=== PATIENT | female | born 1985 | race Caucasian/White ===

== ENCOUNTER 2018-09-28 15:12 | Emergency (ER) | payer OTHER, BC | END 2018-09-28 16:56 | disposition home or self-care (01) | LOC: M ED 15:12 | DX: S39.012A Strain of muscle, fascia and tendon of lower back, initial encounter (principal); X50.9XXA Other and unspecified overexertion or strenuous movements or postures, initial encounter; Y92.59 Other trade areas as the place of occurrence of the external cause; Y99.0 Civilian activity done for income or pay; M62.830 Muscle spasm of back; F17.210 Nicotine dependence, cigarettes, uncomplicated | CPT/HCPCS: 99283 ==

== ENCOUNTER 2020-04-21 12:02 | Emergency (ER) | payer BC, OTHER ==
[~2020-04-21] VITALS: Ht 154.9 cm; Wt 111.0 kg
[~2020-04-21 12:02] MED LIST: CYCL-707 PO; IBUP-1022 PO
[2020-04-21] MEDS ORDERED: NS 1,000 ML IV ONE ×3 (12:15→13:30)
[2020-04-21] MEDS ORDERED: BENA25CA4 PO (12:17)
[2020-04-21] MEDS ORDERED: CENTCHW4 PO (12:17)
[2020-04-21] MEDS ORDERED: ALLE1TAB23 PO (12:17)
[2020-04-21] MEDS ORDERED: ONDANSETRON 4MG/2ML VIAL IV ONE ×2 (12:30→12:45)
[2020-04-21 12:38] LABS: BASO # 0.1 10^3/uL (0.0-0.2); BASO % 0.9 % (0.0-1.0); EOS # 0.2 10^3/uL (0.0-0.5); EOS % 3.1 % (0.0-3.0); HEMATOCRIT 42.1 % (36.0-47.0); HEMOGLOBIN 14.4 g/dl (12.0-15.5); LYMPH # 1.9 10^3/uL (1.5-5.0); MEAN CORPUSCULAR HEMOGLOBIN 30.8 pg (27.0-33.0); MEAN CORPUSCULAR HGB CONC 34.2 g/dl (32.0-36.5); MONO # 0.5 10^3/uL (0.0-0.8); MONO % 8.2 % (0.0-5.0); NEUTROPHILS # 2.9 10^3/uL (1.5-8.5); NEUTROPHILS % 52.6 % (36.0-66.0); PLATELET COUNT, AUTOMATED 207 10^3/uL (150-450); RED BLOOD COUNT 4.68 10^6/uL (4.00-5.40); WHITE BLOOD COUNT 5.5 10^3/uL (4.0-10.0)
[2020-04-21] MEDS ORDERED: PANTOPRAZOLE 40MG VIAL (C9113 PER 1) IV ONE (12:45)
[2020-04-21] MEDS ORDERED: KETOROLAC 30 MG/ML 1ML VIAL IV ONE (12:45)
[2020-04-21 13:02] LABS: HCG, SERUM QUALITATIVE NEGATIVE (NEGATIVE)
[2020-04-21 13:07] LABS: ALBUMIN 4.2 GM/DL (3.2-5.2); ALT/SGPT 31 U/L (12-78); BILIRUBIN,DIRECT < 0.1 MG/DL (0.0-0.2); BILIRUBIN,TOTAL 0.3 MG/DL (0.2-1.0); BLOOD UREA NITROGEN 15 MG/DL (7-18); CALCIUM LEVEL 9.5 MG/DL (8.5-10.1); CARBON DIOXIDE LEVEL 23 MEQ/L (21-32); CHLORIDE LEVEL 104 MEQ/L (98-107); CK-MB VALUE MASS 1.2 NG/ML (<3.6); CPK CREATINE PHOSPHOKINASE 160 U/L (26-192); ETHYL ALCOHOL (ETHANOL) 0.003 % (0.000-0.010); GLOMERULAR FILTRATION RATE > 60.0 (>60); GLUCOSE, FASTING 130 MG/DL (70-100); LIPASE 90 U/L (73-393); MB/CK RELATIVE INDEX 0.75 (< OR =4); POTASSIUM SERUM 3.5 MEQ/L (3.5-5.1); SODIUM LEVEL 139 MEQ/L (136-145); TOTAL PROTEIN 7.6 GM/DL (6.4-8.2); TROPONIN I < 0.02 NG/ML (< 0.10)
[2020-04-21 13:12] LABS: AMPHETAMINES LEVEL URINE NEGATIVE (NEGATIVE); BARBITURATES URINE NEGATIVE (NEGATIVE); BENZODIAZEPINES URINE NEGATIVE (NEGATIVE); CANNABINOIDS URINE NEGATIVE (NEGATIVE); COCAINE METABOLITE URINE NEGATIVE (NEGATIVE); METHADONE URINE NEGATIVE (NEGATIVE); OPIATES URINE NEGATIVE (NEGATIVE); PHENCYCLIDINE URINE NEGATIVE (NEGATIVE)
[2020-04-21] MEDS ORDERED: MECLIZINE 25 MG TABLET PO ONE (13:30)
[2020-04-21 14:27] VITALS: BP 127/78
--- NOTE | 2020-04-21 14:35 | ECGEPIP ---
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
--- NOTE | 2020-04-21 15:32 | REP ---
Clinical: Acute headache and vomiting . Comparison: None . Technique: Axial noncontrast images from the skull base to the vertex with coronal re-formations. Findings: The ventricles, sulci, and cisterns are normal in position and appearance. Santana-white differentiation is maintained. No acute intracranial hemorrhage, mass/mass effect, pathology or trauma/injury. No evidence for acute infarction. No extra-axial fluid collection. Calvarium is intact. Paranasal sinuses and mastoid air cells are clear. Impression: Normal noncontrast head CT. No evidence for acute intracranial pathology or trauma/injury. Electronically Signed by Silas Bailey MD 04/21/2020 03:24 P
--- NOTE | 2020-04-21 15:37 | REP ---
Clinical: Chest pain and dizziness . Comparison: 02/28/2013 . Findings: The mediastinum and cardiac silhouette are stable and within normal limits for portable technique. The lung coe are clear without acute consolidation, effusion, or pneumothorax. Skeletal structures are intact. Impression: No acute cardiopulmonary process appreciated. Electronically Signed by Silas Bailey MD 04/21/2020 03:29 P
== END 2020-04-21 15:18 | disposition home or self-care (01) ==
LOC: M ED 12:02
DX: R55 Syncope and collapse (principal); E86.0 Dehydration; G43.909 Migraine, unspecified, not intractable, without status migrainosus; Z79.899 Other long term (current) drug therapy; F17.218 Nicotine dependence, cigarettes, with other nicotine-induced disorders
CPT/HCPCS: 70450; 71045; 80048; 80076; 80307; 81001; 82550; 82553; 83690; 84443; 84484; 84703; 85025; 93005; 93041; 94760; 96361; 96374; 99285; G0480; J2405

== ENCOUNTER 2024-04-23 21:53 | Inpatient (IN) | payer BC, SELFPAY ==
[~2024-04-23] VITALS: Ht 154.9 cm; Wt 59.9 kg
[~2024-04-23 21:53] MED LIST changes: +BENA25CA4 PO; +CENTCHW4 PO; +FEXO-157 PO
[2024-04-23] MEDS: ONDANSETRON 4MG 2ML VIAL IV ONE (22:00)
[2024-04-23] MEDS: MORPHINE 4 MG/ML 1ML VIAL IV PRN (22:08)
[2024-04-23] MEDS: NS 1,000 ML IV ONE (22:09)
[2024-04-23] MEDS ORDERED: ceFAZolin SOD 2 GM in D5W MINI-BAG PLUS 50 ML IV ONE (22:20)
[2024-04-23 22:29] LABS: VENOUS BASE EXCESS -2.4 (-2.0-2.0); VENOUS HCO3 19.6 MMOL/L (23.0-27.0); VENOUS O2 SATURATION 98.4 % (60.0-80.0); VENOUS PARTIAL PRESSURE O2 110.4 mmHg (30.0-50.0); VENOUS PH 7.479 UNITS (7.330-7.430); VENOUS STANDARD HCO3 22.5 MMOL/L; VENOUS TOTAL CO2 20.4 MMOL/L (24.0-28.0)
[2024-04-23 22:32] LABS: BASO # 0.1 10^3/uL (0.0-0.2); BASO % 0.5 % (0.0-1.0); EOS # 0.1 10^3/uL (0.0-0.5); EOS % 0.8 % (0.0-3.0); HEMATOCRIT 40.1 % (36.0-47.0); HEMOGLOBIN 14.1 g/dl (12.0-15.5); LYMPH # 2.3 10^3/uL (1.5-5.0); LYMPH % 22.9 % (24.0-44.0); MEAN CORPUSCULAR HEMOGLOBIN 31.9 pg (27.0-33.0); MEAN CORPUSCULAR HGB CONC 35.2 g/dl (32.0-36.5); MEAN CORPUSCULAR VOLUME 90.7 fl (80.0-96.0); MONO # 0.6 10^3/uL (0.0-0.8); MONO % 5.7 % (2.0-8.0); NEUTROPHILS % 69.7 % (36.0-66.0); PLATELET COUNT, AUTOMATED 213 10^3/uL (150-450); RED BLOOD COUNT 4.42 10^6/uL (4.00-5.40)
[2024-04-23] MEDS: fentaNYL 100 MCG/2 ML INJECTION IV ONE ×2 (22:32→22:57)
[2024-04-23] MEDS: ceFAZolin SOD 2 GM in IV 1 EA IV ONE (22:40)
[2024-04-23 22:46] LABS: INR 0.87; PARTIAL THROMBOPLASTIN TIME 26.1 SECONDS (24.8-34.2); PROTHROMBIN TIME 11.6 SECONDS (12.5-14.5)
[2024-04-23 22:59] LABS: LIPASE 30 U/L (12-53)
[2024-04-23 23:00] LABS: ETHYL ALCOHOL (ETHANOL) < 0.003 % (0.000-0.010)
[2024-04-23 23:01] LABS: AMYLASE 59 U/L (30-118)
[2024-04-23 23:02] LABS: ALBUMIN 3.6 G/DL (3.2-5.2); ALKALINE PHOSPHATASE 92 U/L (46-116); ALT/SGPT 22 U/L (7.0-40); AST/SGOT 19 U/L (<34); BILIRUBIN,DIRECT < 0.1 MG/DL (<0.4); BILIRUBIN,TOTAL < 0.2 MG/DL (0.3-1.2); BLOOD UREA NITROGEN 16 MG/DL (9-23); CALCIUM LEVEL 8.9 MG/DL (8.5-10.1); CARBON DIOXIDE LEVEL 23 MMOL/L (20-31); CHLORIDE LEVEL 106 MMOL/L (98-107); CREATININE FOR GFR 0.61 MG/DL (0.55-1.30); GLOMERULAR FILTRATION RATE > 60.0 (>60); GLUCOSE, FASTING 134 MG/DL (60-100); POTASSIUM SERUM 3.9 MMOL/L (3.5-5.1); SODIUM LEVEL 138 MMOL/L (136-145); TOTAL PROTEIN 6.4 G/DL (5.7-8.2)
[2024-04-23] MEDS ORDERED: fentaNYL 100 MCG/2 ML INJECTION As Ordered ONE (23:07)
[2024-04-23] MEDS ORDERED: LIDOCAINE 2% 100MG/5ML SDV (FOR ANES.) As Ordered ONE (23:08)
[2024-04-23] MEDS ORDERED: propofoL 200 MG/20 ML VIAL As Ordered ONE (23:08)
[2024-04-23] MEDS ORDERED: ROCURONIUM BROMIDE 50MG/5ML VIAL As Ordered ONE (23:08)
[2024-04-23] MEDS ORDERED: SUGAMMADEX SODIUM 500 MG/5 ML VIAL (BRIDION) As Ordered ONE (23:08)
[2024-04-23] MEDS ORDERED: MIDAZOLAM INJ 2MG/2ML VIAL As Ordered ONE (23:08)
[2024-04-23] MEDS ORDERED: ACETAMINOPHEN 1000MG 100ML IV BAG As Ordered ONE (23:08)
[2024-04-23] MEDS ORDERED: ONDANSETRON 4MG 2ML VIAL As Ordered ONE (23:08)
[2024-04-23] MEDS ORDERED: ISOVUE-370 76% 100ML VIAL As Ordered ONE (23:37)
[2024-04-24] VITALS (8 sets, daily range): BP systolic 115–133; BP diastolic 66–87; TEMP 98.2–99.3; O2SAT 96–99
[2024-04-24] MEDS: fentaNYL 100 MCG/2 ML INJECTION IV ONE (00:02)
[2024-04-24] MEDS ORDERED: HOME MED LIST COMPLETE! XX SCH (00:10)
[2024-04-24] MEDS ORDERED: HYDROMORPHONE HCL 0.5 MG/ 0.5 ML SYRINGE IV PRN ×2 (00:55→04:45)
[2024-04-24] MEDS ORDERED: fentaNYL 100 MCG/2 ML INJECTION IV PRN (00:55)
[2024-04-24] MEDS ORDERED: ONDANSETRON 4MG 2ML VIAL IV PRN ×3 (00:55→07:20)
[2024-04-24] MEDS ORDERED: METOCLOPRAMIDE INJ 10MG/2ML VIAL IV PRN (00:55)
[2024-04-24] MEDS ORDERED: diphenhydrAMINE 50MG/ML VIAL IV PRN ×2 (00:55→04:45)
[2024-04-24] MEDS ORDERED: MEPERIDINE 25 MG/ML 1ML VIAL IV PRN ×2 (00:55→04:45)
[2024-04-24] MEDS ORDERED: LR 1,000 ML IV SCH (00:55)
[2024-04-24] MEDS ORDERED: oxyCODONE 5MG TAB PO PRN (00:55)
[2024-04-24] MEDS ORDERED: KETAMINE HCL 200MG/20ML VIAL As Ordered ONE (01:35)
[2024-04-24] MEDS ORDERED: SUCCINYLCHOLINE 100MG/5ML SYRINGE As Ordered ONE (03:09)
[2024-04-24] MEDS ORDERED: KETOROLAC 60MG 2ML VIAL As Ordered ONE (04:02)
[2024-04-24] MEDS ORDERED: MEPERIDINE 50 MG/ML 1ML VIAL As Ordered ONE (04:13)
[2024-04-24] MEDS: fentaNYL 100 MCG/2 ML INJECTION IV PRN (04:53)
[2024-04-24] MEDS: oxyCODONE 5MG TAB PO PRN (04:59)
[2024-04-24] MEDS ORDERED: MOM 30ML SUSPENSION UDC PO PRN (07:15)
[2024-04-24] MEDS ORDERED: MAALOX 30 ML SUSP *UDC PO PRN (07:15)
[2024-04-24] MEDS ORDERED: MORPHINE 2 MG/ML 1ML VIAL IV PRN (07:20)
[2024-04-24] MEDS: MORPHINE 2 MG/ML 1ML VIAL IV PRN (07:26)
[2024-04-24] MEDS: ceFAZolin SOD 2 GM in IV 1 EA IV SCH (09:44)
[2024-04-24] MEDS: PERCOCET 5MG/325MG TAB PO PRN ×2 (10:36→14:26)
[2024-04-24] MEDS: ENOXAPARIN 40MG/0.4ML SYRINGE (J1650 PER 10MG) SC SCH (12:00)
[2024-04-24 12:16] LABS: BLOOD UREA NITROGEN 11 MG/DL (9-23); CALCIUM LEVEL 7.6 MG/DL (8.5-10.1); CARBON DIOXIDE LEVEL 20 MMOL/L (20-31); CHLORIDE LEVEL 109 MMOL/L (98-107); CREATININE FOR GFR 0.57 MG/DL (0.55-1.30); GLOMERULAR FILTRATION RATE > 60.0 (>60); GLUCOSE, FASTING 157 MG/DL (60-100); MAGNESIUM LEVEL 1.6 MG/DL (1.8-2.4); POTASSIUM SERUM 3.8 MMOL/L (3.5-5.1); SODIUM LEVEL 139 MMOL/L (136-145)
[2024-04-24 12:19] LABS: BASO % 0.1 % (0.0-1.0); HEMATOCRIT 34.9 % (36.0-47.0); LYMPH # 1.2 10^3/uL (1.5-5.0); LYMPH % 8.5 % (24.0-44.0); MEAN CORPUSCULAR HEMOGLOBIN 31.6 pg (27.0-33.0); MEAN CORPUSCULAR HGB CONC 34.1 g/dl (32.0-36.5); MEAN CORPUSCULAR VOLUME 92.6 fl (80.0-96.0); MONO # 0.8 10^3/uL (0.0-0.8); MONO % 6.2 % (2.0-8.0); NEUTROPHILS # 11.5 10^3/uL (1.5-8.5); NEUTROPHILS % 84.9 % (36.0-66.0); PLATELET COUNT, AUTOMATED 226 10^3/uL (150-450); RED BLOOD COUNT 3.77 10^6/uL (4.00-5.40); WHITE BLOOD COUNT 13.6 10^3/uL (4.0-10.0)
[2024-04-24 12:26] LABS: HEMOGLOBIN 11.9 g/dl (12.0-15.5)
[2024-04-24] MEDS: BOOSTRIX VACCINE (TETANUS/DIPHTH/ACEL. PERTUSSIS) 0.5ML SYR IM ONE (20:13)
[2024-04-24] MEDS: ACETAMINOPHEN TAB 650MG DOSE (2X325MG) PO PRN (21:30)
[2024-04-25] MEDS: CEPHALEXIN 500 MG CAP PO SCH (05:06)
[2024-04-25 05:19] VITALS: BP 120/69; TEMP 98.2; O2SAT 100
[2024-04-25 06:49] LABS: MEAN CORPUSCULAR HEMOGLOBIN 31.2 pg (27.0-33.0); MEAN CORPUSCULAR HGB CONC 33.4 g/dl (32.0-36.5); MEAN CORPUSCULAR VOLUME 93.4 fl (80.0-96.0); PLATELET COUNT, AUTOMATED 156 10^3/uL (150-450); RED BLOOD COUNT 3.17 10^6/uL (4.00-5.40); WHITE BLOOD COUNT 6.8 10^3/uL (4.0-10.0)
[2024-04-25 06:59] LABS: HEMATOCRIT 29.6 % (36.0-47.0); HEMOGLOBIN 9.9 g/dl (12.0-15.5)
[2024-04-25 07:17] LABS: BLOOD UREA NITROGEN 5 MG/DL (9-23); CALCIUM LEVEL 7.8 MG/DL (8.5-10.1); CARBON DIOXIDE LEVEL 25 MMOL/L (20-31); CHLORIDE LEVEL 109 MMOL/L (98-107); CREATININE FOR GFR 0.55 MG/DL (0.55-1.30); GLOMERULAR FILTRATION RATE > 60.0 (>60); GLUCOSE, FASTING 97 MG/DL (60-100); MAGNESIUM LEVEL 1.6 MG/DL (1.8-2.4); POTASSIUM SERUM 3.5 MMOL/L (3.5-5.1); SODIUM LEVEL 140 MMOL/L (136-145)
[2024-04-25] MEDS: MAGNESIUM OXIDE 400MG TAB (MAG-OX) PO SCH (09:43)
[2024-04-25] MEDS: KETOROLAC 30 MG/ML 1ML VIAL IV SCH (13:46)
[2024-04-25] MEDS: CYCLOBENZAPRINE 5MG TABLET PO SCH (13:46)
[2024-04-25] MEDS: ACETAMINOPHEN 500 MG TAB PO SCH (13:46)
[2024-04-25] MEDS ORDERED: ASPI81CH33 PO (14:32)
[2024-04-25] MEDS ORDERED: CYCL5TAB PO (14:32)
[2024-04-25] MEDS ORDERED: CEPH500C PO (14:32)
[2024-04-25] MEDS ORDERED: OXYC1TAB23 PO (14:32)
[2024-04-25] MEDS ORDERED: IBUP-1114 PO (14:32)
[2024-04-25] MEDS ORDERED: ACET-683 PO (14:32)
[2024-04-25] MEDS ORDERED: GABAPENTIN 100 MG CAP PO SCH (16:00)
== END 2024-04-25 15:50 | disposition home or self-care (01) | DRG 313 ==
LOC: M ED 21:53 → M MS5PR 04-24 03:30
PROVIDERS: ADMIT Orthopaedic Surgery; ATTEND Student in an Organized Health Care Education/Training Program
PROC: 0QSH06Z Reposition Left Tibia with Intramedullary Internal Fixation Device, Open Approach (ICD-10-PCS; principal; 2024-04-24 01:15)
DX: S82.232B Displaced oblique fracture of shaft of left tibia, initial encounter for open fracture type I or II (principal); E87.20 Acidosis, unspecified; E83.42 Hypomagnesemia; D64.9 Anemia, unspecified; M79.641 Pain in right hand; F17.200 Nicotine dependence, unspecified, uncomplicated; S82.452B Displaced comminuted fracture of shaft of left fibula, initial encounter for open fracture type I or II; V86.55XA Driver of 3- or 4- wheeled all-terrain vehicle (ATV) injured in nontraffic accident, initial encounter; Y92.9 Unspecified place or not applicable; Y93.89 Activity, other specified; Y99.8 Other external cause status

== ENCOUNTER → 2024-05-03 | Outpatient (CLI) | payer BC ==
[~2024-05-03] MED LIST changes: +ACET-683 PO; +ASPI81CH33 PO; +CEPH500C PO; +CYCL5TAB PO; +IBUP-1114 PO; +OXYC1TAB23 PO
== END ==
LOC: M SOG 07:52
PROVIDERS: ATTEND Physician Assistant
DX: S82.292B Other fracture of shaft of left tibia, initial encounter for open fracture type I or II (principal); Z53.9 Procedure and treatment not carried out, unspecified reason; X58.XXXA Exposure to other specified factors, initial encounter; Y92.89 Other specified places as the place of occurrence of the external cause; Y93.89 Activity, other specified; Y99.8 Other external cause status

== ENCOUNTER → 2024-06-21 | Outpatient (CLI) | payer BC | LOC: M SOG 07:55 | PROVIDERS: ATTEND Physician Assistant | DX: S82.292B Other fracture of shaft of left tibia, initial encounter for open fracture type I or II (principal) ==

== ENCOUNTER → 2024-08-02 | Outpatient (CLI) | payer BC ==
[~2024-08-02] MED LIST changes: -FEXO-157 PO; +FEXO-63 PO
== END ==
LOC: M SOG 08:01
PROVIDERS: ATTEND Orthopaedic Surgery
DX: S82.292B Other fracture of shaft of left tibia, initial encounter for open fracture type I or II (principal); Y93.9 Activity, unspecified; Y92.9 Unspecified place or not applicable

== ENCOUNTER → 2024-11-02 | Outpatient (CLI) | payer BC ==
[~2024-11-02] MED LIST changes: -CYCL5TAB PO; +CYCL5TAB4 PO
== END ==
LOC: M SOG 10:22
PROVIDERS: ATTEND Orthopaedic Surgery
DX: S82.292B Other fracture of shaft of left tibia, initial encounter for open fracture type I or II (principal)

== ENCOUNTER → 2025-02-21 | Outpatient (CLI) | payer BC | LOC: M SOG 07:57 | PROVIDERS: ATTEND Physician Assistant | DX: S82.292 Other fracture of shaft of left tibia (principal) ==

== ENCOUNTER 2025-03-30 14:26 | Day surgery (SDC) | payer BC ==
[~2025-03-30] VITALS: Ht 154.9 cm; Wt 60.8 kg
[~2025-03-30 14:26] MED LIST changes: +CALC500T52 PO; +CETI10CH PO
[2025-03-30] MEDS ORDERED: OXYC-517 PO (15:49)
[2025-03-30] MEDS ORDERED: ACET-907 PO (15:49)
[2025-03-30] MEDS ORDERED: IBUP200C25 PO (15:49)
[2025-03-30] MEDS ORDERED: propofoL 200 MG/20 ML VIAL As Ordered ONE (16:53)
[2025-03-30] MEDS ORDERED: dexmedeTOMIDine (4MCG/ML)200MCG/50ML BTL (PRECEDEX) As Ordered ONE (16:53)
[2025-03-30] MEDS ORDERED: MIDAZOLAM INJ 2MG/2ML VIAL As Ordered ONE (16:53)
[2025-03-30] MEDS ORDERED: LIDOCAINE 2% 100MG/5ML SDV (FOR ANES.) As Ordered ONE (16:53)
[2025-03-30] MEDS ORDERED: ONDANSETRON 4MG 2ML VIAL As Ordered ONE (16:53)
[2025-03-30] MEDS ORDERED: fentaNYL 100 MCG/2 ML INJECTION As Ordered ONE (16:54)
[2025-03-30] MEDS: ceFAZolin SODIUM 2 GM VIAL As Ordered ONE (17:17)
[2025-03-30] MEDS ORDERED: ACETAMINOPHEN 1000MG/100ML IV BAG As Ordered ONE (17:33)
[2025-03-30] MEDS ORDERED: KETOROLAC 30 MG/ML 1ML VIAL As Ordered ONE (17:33)
[2025-03-30] MEDS ORDERED: HYDROMORPHONE HCL 0.5 MG/ 0.5 ML SYRINGE IV PRN (18:00)
[2025-03-30] MEDS ORDERED: ONDANSETRON 4MG 2ML VIAL IV PRN (18:00)
[2025-03-30] MEDS ORDERED: fentaNYL 100 MCG/2 ML INJECTION IV PRN (18:00)
[2025-03-30] MEDS ORDERED: oxyCODONE 5MG TAB PO PRN (18:00)
[2025-03-30] MEDS ORDERED: LR 1,000 ML IV SCH (18:00)
[2025-03-30 19:16] VITALS: BP 123/75; TEMP 98; O2SAT 100
== END 2025-03-30 19:18 | disposition home or self-care (01) ==
LOC: M SDC 14:26
PROVIDERS: ATTEND Orthopaedic Surgery
DX: T84.84XA Pain due to internal orthopedic prosthetic devices, implants and grafts, initial encounter (principal); Y79.2 Prosthetic and other implants, materials and accessory orthopedic devices associated with adverse incidents; M79.662 Pain in left lower leg; J30.1 Allergic rhinitis due to pollen; Z91.048 Other nonmedicinal substance allergy status; Z79.899 Other long term (current) drug therapy
CPT/HCPCS: 20680; 76000; 81025; J0131; J0665; J0690; J1100; J1885; J2250; J2405; J3010